=== PATIENT | female | born 1975 | race Hispanic/Latino ===

== ENCOUNTER 2018-12-29 06:56 | Day surgery (SDC) | payer OTHER ==
[2018-12-25 14:06] LABS: BASOPHILS % (AUTO) 0.8 % (0.0-5.0); EOSINOPHILS % (AUTO) 1.1 % (0.0-8.0); HEMATOCRIT 39.2 % (36-48); LYMPHOCYTES % (AUTO) 26.4 % (21.0-51.0); MEAN CORPUSCULAR HEMOGLOBIN 29.9 pg (27.0-33.0); MEAN CORPUSCULAR HGB CONC 33.2 g/dL (32.0-36.0); MEAN CORPUSCULAR VOLUME 90.1 fL (79-99); MONOCYTES % (AUTO) 4.9 % (3.0-13.0); NEUTROPHILS % (AUTO) 66.8 % (40.0-77.0); PLATELET COUNT (AUTO) 209 K/uL (130-400); RED BLOOD CELL COUNT(AUTO) 4.35 MIL/uL (4.00-5.50); RED CELL DISTRIBUTION WIDTH 13.7 % (11.0-15.5); WHITE BLOOD COUNT (AUTO) 6.2 K/uL (4.8-10.8)
[2018-12-25 14:19] VITALS: BP 134/64
[2018-12-25 14:27] LABS: APPEARANCE,URINE Cloudy (CLEAR); BILIRUBIN,URINE Negative (NEGATIVE); COLOR,URINE Yellow (YELLOW); GLUCOSE, URINE (UA) Negative (NEGATIVE); KETONES,URINE Negative (NEGATIVE); LEUKOCYTE ESTERASE ,URINE Trace (NEGATIVE); NITRATE,URINE Negative (NEGATIVE); OCCULT BLOOD,URINE Negative (NEGATIVE); PH,URINE 8.5 (5.0-8.0); PROTEIN,URINE Negative (NEGATIVE)
[2018-12-25 14:42] LABS: AMORPHOUS SEDIMENT,UR Moderate /LPF (None Seen); BACTERIA,URINE Few /HPF (None Seen); RBC,URINE None Seen /HPF (0-1); SQUAMOUS EPITHELIAL CELL,UR 0-2 /HPF (0-2); WBC,URINE 0-1 /HPF (0-1)
[2018-12-29] VITALS (18 sets, daily range): BP systolic 110–158; BP diastolic 55–90
[~2018-12-29] VITALS: Ht 157.5 cm; Wt 65.4 kg
[~2018-12-29 06:56] MED LIST: CETI-101 PO
[2018-12-29] MEDS ORDERED: LACTATED RINGERS 1000ML 1,000 ML IV ONE (07:39)
[2018-12-29] MEDS ORDERED: BUPIVACAINE/PF 0.25% 30ML VIAL IJ ONE (07:46)
[2018-12-29] MEDS ORDERED: ROCURONIUM 10MG/1ML SYR 10 MG/ML ML ONE (08:28)
[2018-12-29] MEDS ORDERED: NEOSTIGMINE 5MG/5ML SYR IV ONE (08:28)
[2018-12-29] MEDS ORDERED: LIDOCAINE PF 2% 5ML ABBOJECT ONE (08:28)
[2018-12-29] MEDS ORDERED: GLYCOPYRROLATE 1 MG/5 ML SYRINGE ONE (08:28)
[2018-12-29] MEDS ORDERED: ONDANSETRON HCL 4 MG/2 ML VIAL ONE (08:28)
[2018-12-29] MEDS ORDERED: PROPOFOL 10 MG/ML 20ML VIAL IV ONE (08:28)
[2018-12-29] MEDS ORDERED: MIDAZOLAM HCL 1 MG/ML 2ML VIAL ONE (08:28)
[2018-12-29] MEDS ORDERED: SUCCINYLCHOLINE 200MG/10ML SYR ONE (08:28)
[2018-12-29] MEDS ORDERED: DEXAMETHASONE SOD PHOSPHATE 10MG/ML 1ML VIAL ONE (08:28)
[2018-12-29] MEDS ORDERED: FENTANYL CITRATE PF 50 MCG/1 ML 2ML VIAL ONE ×2 (08:29→08:35)
[2018-12-29] MEDS ORDERED: ACET-66 PO (09:20)
--- NOTE | 2018-12-29 10:20 | NUR ---
PATIENT ARRIVED FROM PACU VIA BED AND BROUGHT BY ROSANA MORILLO. PATIENT [id number], RESPIRATIONS UNLABORED, NO C/O PAIN AT THIS TIME. DRESSING TO ABDOMEN IS DRY AND INTACT, NO DRAINAGE NOTED.
--- NOTE | 2018-12-29 11:25 | NUR ---
PATIENT DISCHARGED DISCHARGE INSTRUCTIONS PROVIDED TO PATIENT'S SPOUSE, REECE KAY. FOLLOW UP APPOINTMENT PROVIDED AND EXIT CARE HANDOUTS PROVIDED AND EXPLAINED. NEW PRESCRIPTION PROVIDED TO PATIENT. PATIENT'S SPOUSE VERBALIZED UNDERSTANDING. PATIENT TAKEN TO PRIVATE VEHICLE VIA WHEELCHAIR AND ASSISTED INTO VEHICLE.
== END 2018-12-29 11:25 ==
LOC: DAH 06:56
PROVIDERS: ATTEND Surgery
DX: K43.9 Ventral hernia without obstruction or gangrene (principal); F41.9 Anxiety disorder, unspecified; F15.90 Other stimulant use, unspecified, uncomplicated; Z88.8 Allergy status to other drugs, medicaments and biological substances; Z79.82 Long term (current) use of aspirin; Z79.899 Other long term (current) drug therapy; Z82.49 Family history of ischemic heart disease and other diseases of the circulatory system; Z82.5 Family history of asthma and other chronic lower respiratory diseases
CPT/HCPCS: 36415; 81001; 84703; 85025; A4606; C1781; J0330; J1100; J2001; J2250; J2405; J2704; J2710; J3010; J3490; J7120

== ENCOUNTER 2023-11-30 03:07 | Emergency (ER) | payer OTHER ==
[~2023-11-30] VITALS: Ht 157.5 cm; Wt 65.3 kg
[~2023-11-30 03:07] MED LIST changes: +ACET-66 PO; -CETI-101 PO; +CETI-89 PO
[2023-11-30] MEDS: DEXTROSE 5%-LACTATED RINGERS 1,000 ML IV SCH (04:00)
[2023-11-30 04:19] LABS: BASOPHILS # (AUTO) 0.02 K/uL (0.00-0.20); BASOPHILS % (AUTO) 0.4 % (0.0-5.0); EOSINOPHILS # (AUTO) 0.13 K/uL (0.00-0.70); EOSINOPHILS % (AUTO) 2.7 % (0.0-8.0); HEMATOCRIT 40.7 % (36-48); IMMATURE GRANULOCYTE ABSOLUTE 0.01 K/uL (0-1); LYMPHOCYTES # (AUTO) 1.8 K/uL (1.0-4.8); LYMPHOCYTES % (AUTO) 36.4 % (21.0-51.0); MEAN CORPUSCULAR HEMOGLOBIN 29.7 pg (27.0-33.0); MEAN CORPUSCULAR HGB CONC 33.2 g/dL (32.0-36.0); MEAN CORPUSCULAR VOLUME 89.5 fL (79-99); MONOCYTES # (AUTO) 0.4 K/uL (0.1-1.0); MONOCYTES % (AUTO) 7.8 % (3.0-13.0); NEUTROPHILS # (AUTO) 2.6 K/uL (1.8-7.7); NEUTROPHILS % (AUTO) 52.5 % (40.0-77.0); PLATELET COUNT (AUTO) 218 K/uL (130-400); RED BLOOD CELL COUNT(AUTO) 4.55 MIL/uL (4.00-5.50); RED CELL DISTRIBUTION WIDTH 13.2 % (11.0-15.5); WHITE BLOOD COUNT (AUTO) 4.9 K/uL (4.8-10.8)
[2023-11-30] MEDS: HYDRALAZINE HCL 10 MG TABLET PO SCH (04:21)
[2023-11-30] MEDS: LACTATED RINGERS 1000ML 1,000 ML IV SCH (04:22)
[2023-11-30 04:23] LABS: CREATININE 0.8 mg/dL (0.5-1.0); POTASSIUM 3.2 mmol/L (3.5-5.1)
[2023-11-30 04:32] LABS: ALBUMIN 3.7 g/dL (3.5-5.0); BILIRUBIN,TOTAL 0.2 mg/dL (0.2-1.0); TOTAL PROTEIN, SERUM 6.4 g/dL (6.0-8.3)
[2023-11-30 05:43] VITALS: BP 130/49; PULSE 66; RESP 16; O2SAT 100
== END 2023-11-30 06:01 | disposition home or self-care (01) ==
LOC: EDH 03:07
DX: M25.561 Pain in right knee (principal); M25.562 Pain in left knee; R20.2 Paresthesia of skin; Z79.899 Other long term (current) drug therapy
CPT/HCPCS: 99283; 96360; 96361; 80053; 85025; 36415; J7120